=== PATIENT | female | born 1950 | race African-American/Black ===

== ENCOUNTER 2018-02-13 09:50 | Outpatient (RCR) | payer MEDICARE | END 2018-03-06 | disposition home or self-care (01) | LOC: PTY 09:50 | DX: M17.12 Unilateral primary osteoarthritis, left knee (principal); Z96.652 Presence of left artificial knee joint | CPT/HCPCS: 97110; 97140; 97161; G8978; G8979 ==

== ENCOUNTER 2018-03-11 10:20 | Outpatient (RCR) | payer MEDICARE | END 2018-04-05 | disposition home or self-care (01) | LOC: PTY 10:20 | DX: Z47.1 Aftercare following joint replacement surgery (principal); M17.12 Unilateral primary osteoarthritis, left knee; Z96.652 Presence of left artificial knee joint | CPT/HCPCS: 97110; 97140; G8978; G8979 ==

== ENCOUNTER 2018-04-07 09:48 | Outpatient (RCR) | payer MEDICARE | END 2018-05-06 | disposition home or self-care (01) | LOC: PTY 09:48 | DX: Z47.1 Aftercare following joint replacement surgery (principal); M17.12 Unilateral primary osteoarthritis, left knee; Z96.652 Presence of left artificial knee joint | CPT/HCPCS: 97110; G8979; G8980 ==

== ENCOUNTER 2018-08-13 14:00 | Outpatient (RCR) | payer MEDICARE | END 2018-09-05 | disposition home or self-care (01) | LOC: PTY 14:00 | DX: Z47.1 Aftercare following joint replacement surgery (principal); Z96.652 Presence of left artificial knee joint; M17.12 Unilateral primary osteoarthritis, left knee | CPT/HCPCS: 97032; 97035; 97140; 97161; G8978; G8979 ==